=== PATIENT | male | born 1975 | race Caucasian/White ===

== ENCOUNTER 2016-09-09 23:55 | Emergency (ER) | payer SELFPAY ==
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
[~2016-09-09 23:55] MED LIST: VICODIN 5/500 T1 TAB PO
== END 2016-09-10 02:00 | disposition home or self-care (01) ==
LOC: CED 23:55
DX: S93.401A Sprain of unspecified ligament of right ankle, initial encounter (principal); S80.02XA Contusion of left knee, initial encounter; S80.01XA Contusion of right knee, initial encounter; S80.12XA Contusion of left lower leg, initial encounter; S80.11XA Contusion of right lower leg, initial encounter; Z23 Encounter for immunization; V49.40XA Driver injured in collision with unspecified motor vehicles in traffic accident, initial encounter; Y92.410 Unspecified street and highway as the place of occurrence of the external cause
CPT/HCPCS: 29530; 29540; 73560; 73590; 73610; 73630; 90471; 90715; 99283; 99284